=== PATIENT | male | born 1950 | race Caucasian/White ===

== ENCOUNTER 2020-08-03 15:41 | Outpatient (RCR) | payer MEDICARE, OTHER, SELFPAY ==
[2020-08-03] MEDS: COVID-19 VACC, MRNA(PFIZER)/PF 30 MCG/0.3 ML SYRINGE IM (10:48)
[2020-08-24] MEDS: COVID-19 VACC, MRNA(PFIZER)/PF 30 MCG/0.3 ML SYRINGE IM (10:35)
== END 2020-08-03 23:59 ==
LOC: IMMUN 15:41
PROVIDERS: Visit Provider Family Medicine
DX: Z23 Encounter for immunization (principal)
CPT/HCPCS: 0001A; 0002A

== ENCOUNTER → 2020-12-11 08:34 | Outpatient (CLI) | payer MEDICARE, OTHER, SELFPAY ==
--- NOTE | 2020-12-11 08:37 | AAAS_ITS ---
Reason For Study: AAA Screening Aorta Measurements Aorta Doppler Measurements Proximal aorta measures1.96cm x 1.99cm. in cross- Peak systolic flow velocities within the proximal sectional axis. aorta measure 124 cm/sec. Proximal aorta measures1.92cm. in longitudinal Peak systolic flow velocities within the mid aorta axis. measure 113 cm/sec. Mid aorta measures1.62cm x 1.71cm. in cross- Peak systolic flow velocities within the distal sectional axis. aorta measure 123 cm/sec. Mid aorta measures1.72cm. in longitudinal axis. Distal aorta measures1.66cm x 1.83cm. in cross- sectional axis. Distal aorta measures1.69cm. in longitudinal axis. Left Iliac Artery Left iliac artery measures 1.28cm x 1.34 cm. in the cross-sectional axis. Left iliac artery measures 1.15 cm. in the longitudinal axis. Peak systolic velocity in the left iliac artery measures 122 cm/sec. Right Iliac Artery Right iliac artery measures 1.25cm x 1.20 cm. in the cross-sectional axis. Right iliac artery measures 1.38 cm. in the longitudinal axis. Peak systolic velocity in the right iliac artery measures 115 cm/sec. Procedure Aorta IVC Iliac vasculature or bypass grafts [id number]. Exam performed in department. VL/AAA Screening Interpretation Summary The dimensions of the intra-abdominal aorta are normal, without evidence of ane urysmal dilatation. The iliac arteries are also normal in caliber bilaterally. The intra-abdominal aorta and iliac arteries are patent, demonstrating normal, pulsatile arterial flow and normal p eak systolic velocities. Ordering Physician: Rebecca Lopez Referring Physician: Rebecca Lopez Performed By: Daniela Palma, MAICOL, RVT
== END ==
DX: Z13.6 Encounter for screening for cardiovascular disorders (principal); Z87.891 Personal history of nicotine dependence
CPT/HCPCS: 76706

== ENCOUNTER → 2020-12-13 12:08 | Outpatient (CLI) | payer SELFPAY ==
--- NOTE | 2020-12-13 12:15 | CT_ITS ---
STUDY: CARDIAC CALCIUM SCORING - CT CHEST REASON FOR EXAM: Male, 70 years old. family hx CAD RADIATION DOSAGE (If Supplied By Facility): CTDIvol = ( 12.19 ) mGy, DLP = ( 195.04 ) mGycm TECHNIQUE: Axial non-enhanced images were acquired through the heart for the sole purpose of measuring coronary artery calcium. Individualized dose optimization techniques were used for this CT. COMPARISON: None. FINDINGS: Visualized surrounding anatomy: Normal. Left Main Coronary Artery: 97 Left Anterior Descending Artery: 36.6 Left Circumflex Artery: 0 Right Coronary Artery: 0 Other: There is a 1 cm medial right lower lobe fat-containing nodule on series 3 image 33 with hamartoma. There is mild cardiomegaly. Mild atelectasis at the lung bases. Total Calcium Score: 134 CT/Limited Chest CT w/CCTA IMPRESSION: A Calcium Score of 134 places the patient in the approximate 25-50th percentile, based on the [employer] data calculator. 1 cm fat-containing medial right lower lobe nodule in keeping with hamartoma. Mild cardiomegaly. Please go to: [email or web address] , for a description of the calculator. Electronically Signed: Nikki Carlson MD at 9:34 EDT Tel , Service support ,
[2020-12-13 12:23] VITALS: BP 118/56; PULSE 57; RESP 14; O2SAT 98; BMI 27.1
--- NOTE | 2020-12-13 17:45 | CA.SCORE ---
Calcium Scoring Coronary Calcium Scoring: High-resolution Computed Tomographic imaging of the chest was performed on [12/13/2020], with particular attention paid to the coronary arteries. Images from the examination were analyzed for the presence and extent of coronary artery calcification , using coronary calcium quantification software. The patient tolerated the procedure well and there were no complications. The results of the coronary calcification analysis are provided below. Left main coronary artery score 97 Left anterior descending artery score 36 Left circumflex artery score 0 Right coronary artery score 0 Total Agatston score 134. Percentile ranking between 25 and 50%. The above is suggestive of mild plaque burden and minimal coronary atherosclerosis. A full evaluation of cardiac risk should include an assessment of all conventional risk factors and the scores and percentile rankings reported hearing should be evaluated in this context. Calcium Scoring Interpretation: 0 No identifiable atherosclerotic plaque. Very low cardiovascular disease risk. <5% chance of presence coronary artery disease A Negative Examination 1-10 Minimal Plaque burden. Significant coronary artery disease very unlikely. 11-100 Mild plaque burden. Likely mild or minimal coronary atherosclerosis. 101-400 Moderate plaque burden Moderate non-obstructive coronary artery disease highly likely. Over 400 Extensive plaque burden. High likelihood of at least one significant coronary stenosis (>50% diameter)
== END ==
DX: Z13.6 Encounter for screening for cardiovascular disorders (principal); Z87.891 Personal history of nicotine dependence; Z82.49 Family history of ischemic heart disease and other diseases of the circulatory system
CPT/HCPCS: 75571; 76380